=== PATIENT | female | born 1960 | race Caucasian/White ===

== ENCOUNTER 2017-06-14 11:11 | Day surgery (SDC) | payer BC ==
[2017-06-11 10:57] VITALS: BMI 28.2
[2017-06-14] MEDS ORDERED: LIDOCAINE 1%/EPI 1:100000 (20 ML MULTI DOSE VIAL) ONE ×2 (13:06→14:03)
[2017-06-14] MEDS ORDERED: PROPOFOL 20 ML ONE ×2 (13:10)
[2017-06-14] MEDS ORDERED: MIDAZOLAM HCL 2 MG/2 ML SINGLE DOSE VIAL ONE (13:10)
[2017-06-14] MEDS ORDERED: ROCURONIUM BROMIDE 50 MG/5 ML VIAL ONE (13:10)
[2017-06-14] MEDS ORDERED: fentaNYL CITRATE 250 MCG/5 ML VIAL ONE (13:10)
[2017-06-14] MEDS ORDERED: SUCCINYLCHOLINE CHLORIDE 200 MG/10 ML VIAL ONE (13:10)
[2017-06-14] MEDS ORDERED: ONDANSETRON 4 MG/2 ML VIAL ONE (13:13)
[2017-06-14] MEDS ORDERED: ceFAZolin SODIUM 1 GM VIAL ONE (13:13)
[2017-06-14] MEDS ORDERED: DEXAMETHASONE SOD PHOSPHATE 4 MG/1 ML VIAL ONE (13:13)
[2017-06-14] MEDS ORDERED: LIDOCAINE HCL 2% JELLY (5 ML/TUBE) ONE (13:13)
[2017-06-14] MEDS ORDERED: LIDOCAINE 1%/EPI 1:100000 (50 ML MULTI DOSE VIAL) INF ONE (14:01)
[2017-06-14] MEDS ORDERED: MINERAL OIL/PETROLATUM,WHITE 3.5 GM TUBE ONE (15:21)
[2017-06-14] MEDS ORDERED: PROMETHAZINE HCL 25 MG/1 ML VIAL IVPUSH PRN (15:44)
[2017-06-14] MEDS ORDERED: ONDANSETRON 4 MG/2 ML VIAL IVPUSH PRN (15:44)
[2017-06-14] MEDS ORDERED: oxyCODONE HCL 5 MG TABLET PO PRN ×2 (15:44)
[2017-06-14] MEDS ORDERED: LACTATED RINGERS SOLUTION 1,000 ML IV SCH (15:45)
[2017-06-14] MEDS ORDERED: ONDANSETRON 4 MG/2 ML VIAL IVPUSH ONE (16:00)
[2017-06-14 17:50] VITALS: TEMP 98.1
[2017-06-14] MEDS ORDERED: oxyCODONE HCL 5 MG TABLET ONE (17:57)
[2017-06-14 19:31] VITALS: BP 119/72; PULSE 78
--- NOTE | 2017-06-15 10:12 | OP ---
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 OPERATIVE PROCEDURE: 1. Right facial reconstruction with sternocleidomastoid flap reconstruction. 2. Reconstruction of right facial deformity with acellular dermal matrix AlloDerm. 3. Dermal fat graft to right face. 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 The risks and benefits of surgical versus nonsurgical alternatives as well as material complications of the procedure were described to the patient on multiple occasions preoperatively including today in the holding area where she was marked and outlined for the procedure. Patient understood that temporary weakness of the facial nerve could result from this dissection and understood the risks and benefits. OPERATIVE PROCEDURE IN DETAIL: Patient was taken to the operating room, and after induction of general anesthesia in supine position, both arms were extended, and attention was turned to the abdominal/flank region. The area was prepped and draped for reconstructive tissue, and the face was prepped and draped with head drape in the usual fashion. At this point, after sterile drapes and timeout, attention was turned to the right facial area. The previous preauricular and hockey-shaped incisions on the neck were injected with 1% local lidocaine anesthesia with 1:100,000 epinephrine, as was the whole facial area around the parotid bed. The skin flaps were very thin and somewhat adherent to the underlying tissues. Hydrodissection with the liquid was carried out in order to ascertain a plane for dissection. Using optical magnification of 2.5 power, the facial dissection was carried out. Using a number-10 scalpel, an incision was made in the preauricular area and extending into the hockey-shaped area. This was extended superiorly in order to protect the underlying structures, and a very thin dissection of the skin and subcutaneous tissue was carried out, leaving the glistening fascia below. Skin flaps were raised to the anterior border of the previous dissection at the mid-face and down into the jaw/neckline. At this point, the dissection was carried out over the sternocleidomastoid muscle which was encountered in the neck, and careful dissection with large amounts of hemostasis with bipolar cautery was carried out. This microdissection was dissected free of all scar attachments. The sternocleidomastoid muscle was then split distally and divided in half in a superficial fashion, turning over a flap onto the parotid defect. This defect was filled with muscle tissue and tendinous portions of the material from the postauricular area. After release, the bed was filled with this muscle and then tacked into position with 4-0 Vicryl sutures in interrupted fashion. This gave some coverage of the bed itself but required further attention. At this point, an 8 x sheet of AlloDerm was brought into the field, sterilely rehydrated on the back table, and then placed into the defect. Skin and subcutaneous tissue and dermal fat grafting was harvested from the lower leg, thighs, and abdomen. This was cleansed, washed, and prepared for reconstructive purposes. This material on the back table was prepared for placement and then placed into the subcutaneous tissue including just underneath the glistening tissue of the parotid bed. Good shape and contour were seen, and fill was adequate. Then, the AlloDerm itself was placed under the skin flaps and over the previously filled material. This also was tacked into position using 4-0 Vicryl sutures in interrupted fashion, and good shape and contour were then seen by replacing the skin flaps. Hemostasis was meticulously obtained throughout. The skin flap were advanced and closed upon themselves without removal of any skin tissue. The skin was closed using 4-0 Biosyn sutures in interrupted fashion on the deep dermis and running 5-0 nylon sutures on the skin. Dry sterile dressings using Dermabond and Steri-Strips were placed. The patient tolerated the procedure well. She was awakened, extubated, and transferred to the recovery room in satisfactory condition. The donor site had been closed with interrupted and running sutures. The patient showed a slight weakness of her facial area upon awakening and in the recovery room. These were protected with an eye patch and should resolve. ROMINA MARIE M.D. [id number]
== END 2017-06-14 19:32 | disposition home or self-care (01) ==
LOC: FASU 11:11
PROVIDERS: ATTEND Plastic Surgery
PROC: 0KX10Z2 Transfer Facial Muscle with Skin and Subcutaneous Tissue, Open Approach (ICD-10-PCS; principal; 2017-06-14 13:33)
DX: M95.2 Other acquired deformity of head (principal)
CPT/HCPCS: 94760